=== PATIENT | female | born 1990 | race African-American/Black ===

== ENCOUNTER 2017-08-13 11:25 | Emergency (ER) | payer OTHER ==
[2017-08-13 11:38] LABS: URINE HCG POC HCG POSITIVE (Negative)
[2017-08-13 11:48] LABS: ADD MAN DIFF? NO; BILIRUBIN,URINE NEGATIVE (NEG); CLARITY,URINE CLEAR; COLOR,URINE YELLOW; GLUCOSE,URINE NEGATIVE (NEG); NITRITE,URINE NEGATIVE (NEG); PROTEIN,URINE NEGATIVE (NEG-TRACE); RBC,URINE 0 /HPF (0-2); WBC,URINE OCC /HPF (0-4)
[2017-08-13 11:49] LABS: BACTERIA,URINE 0 /HPF (0-FEW); SQUAMOUS EPITHELIAL CELL,UR FEW /LPF
[2017-08-13] MEDS: IV NORMAL SALINE 500ML BAG 500 ML IV (11:54)
[2017-08-13] MEDS: 0.9 % SODIUM CHLORIDE 10 ML DISP.SYRIN. IV (11:54)
[2017-08-13 12:01] LABS: ANION GAP 8 (6-14); BASO % 1 % (0-3); BLOOD UREA NITROGEN 4 mg/dL (7-20); CALCIUM 8.7 mg/dL (8.5-10.1); CARBON DIOXIDE 26 mmol/L (21-32); CHLORIDE 105 mmol/L (98-107); CREATININE 0.7 mg/dL (0.6-1.0); EOS # 0.1 x10^3/uL (0.0-0.7); EOS % 2 % (0-3); GFR 100.4; GLUCOSE 92 mg/dL (70-99); HEMATOCRIT 36.5 % (36.0-47.0); HEMOGLOBIN 12.4 g/dL (12.0-15.5); LYMPH # 1.4 x10^3/uL (1.0-4.8); LYMPH % 27 % (24-48); MEAN CORPUSCULAR HEMOGLOBIN 30 pg (25-35); MEAN CORPUSCULAR HGB CONC 34 g/dL (31-37); MEAN CORPUSCULAR VOLUME 89 fL (79-100); MONO # 0.5 x10^3/uL (0.0-1.1); MONO % 10 % (0-9); NEUT # 3.2 x10^3uL (1.8-7.7); NEUT % 62 % (31-73); PLATELET COUNT 265 x10^3/uL (140-400); POTASSIUM 3.3 mmol/L (3.5-5.1); RED BLOOD COUNT 4.08 x10^6/uL (3.50-5.40); RED CELL DISTRIBUTION WIDTH 12.8 % (11.5-14.5); SODIUM 139 mmol/L (136-145); WHITE BLOOD COUNT 5.1 x10^3/uL (4.0-11.0)
[2017-08-13] MEDS ORDERED: DEXAMETHASONE SOD PHOS 20 MG/5 ML VIAL. (13:20)
[2017-08-13] MEDS ORDERED: PHENYLEPHRINE 10 MG/ML VIAL. (13:20)
[2017-08-13] MEDS ORDERED: LIDOCAINE 1% PF 5 ML VIAL. (13:20)
[2017-08-13] MEDS ORDERED: MIDAZOLAM HCL/PF 2 MG/2 ML VIAL. (13:20)
[2017-08-13] MEDS ORDERED: ONDANSETRON PF 4 MG/2 ML VIAL. (13:20)
[2017-08-13] MEDS ORDERED: PROPOFOL 20 ML IV (13:20)
[2017-08-13] MEDS ORDERED: 0.9 % SODIUM CHLORIDE 50 ML VIAL. IJ (13:23)
[2017-08-13] MEDS ORDERED: IV RINGERS,LACTATED 1000ML 1,000 ML IV (13:28)
[2017-08-13] MEDS ORDERED: ONDANSETRON PF 4 MG/2 ML VIAL. IV (13:30)
[2017-08-13] MEDS ORDERED: fentaNYL PF VIAL 100 MCG/2 ML VIAL IV (13:30)
[2017-08-13] MEDS ORDERED: MORPHINE SULFATE 2 MG/ML DISP.SYRIN. IV (13:30)
[2017-08-13] MEDS ORDERED: LIDOCAINE 1% PF 2 ML VIAL. ID (13:30)
[2017-08-13] MEDS ORDERED: PROCHLORPERAZINE 10 MG/2 ML VIAL. IV (13:30)
[2017-08-13] MEDS ORDERED: OXYTOCIN 10 UNIT/ML VIAL. ×3 (13:55)
[2017-08-13] MEDS ORDERED: KETOROLAC 30 MG/ML INJ FOR OR. INJ (14:05)
[2017-08-13] MEDS ORDERED: SEVOFLURANE 31 TO 60 MINUTES. IH (14:05)
[2017-08-13] MEDS: fentaNYL PF VIAL 100 MCG/2 ML VIAL IV ×2 (14:31→14:44)
[2017-08-13] MEDS: HYDROcodone/APAP 5/325MG 1 TAB TABLET PO (15:14)
[2017-08-13] MEDS: METHYLERGONOVINE MALEATE 0.2 MG/ML VIAL. IM (15:19)
== END 2017-08-13 12:46 | disposition other institution (70) ==
LOC: ER 11:25 → 3 NORTH 12:33
DX: O20.0 Threatened abortion (principal); O99.331 Smoking (tobacco) complicating pregnancy, first trimester; Z3A.00 Weeks of gestation of pregnancy not specified; Z88.8 Allergy status to other drugs, medicaments and biological substances
CPT/HCPCS: 36415; 80048; 81001; 81025; 84702; 85025; 86850; 86900; 86901; 87086; 88305; 96360; 96361; 96372; 96374; 99285-25; C1769; J1100; J1885; J2210; J2250; J2405; J2590; J2704; J3010; J7040